=== PATIENT | female | born 1970 | race Caucasian/White ===

== ENCOUNTER 2017-04-22 12:18 | Day surgery (SDC) | payer OTHER ==
[~2017-04-22] VITALS: Ht 162.6 cm; Wt 57.2 kg
[~2017-04-22 12:18] MED LIST: CALCIUM/VITAMIN D PO; NEXIUM40 MG PO; PERCOCET 5/31 TABLET PO; VITAMIN B PO; VITAMIN B12 PO
[2017-04-22 12:45] VITALS: BP 129/81
[2017-04-22 17:20] VITALS: BP 107/57
== END 2017-04-22 17:55 | disposition home or self-care (01) ==
LOC: SDC 12:18
PROC: 0QBN0ZZ Excision of Right Metatarsal, Open Approach (ICD-10-PCS; principal; 2017-04-22)
DX: M20.11 Hallux valgus (acquired), right foot (principal); Z85.820 Personal history of malignant melanoma of skin; Z82.49 Family history of ischemic heart disease and other diseases of the circulatory system; Z80.9 Family history of malignant neoplasm, unspecified; Z91.040 Latex allergy status; Z91.09 Other allergy status, other than to drugs and biological substances; Z88.1 Allergy status to other antibiotic agents
CPT/HCPCS: C1713; J0131; J0690; J1885; J2250; J3010; S0020